=== PATIENT | female | born 1960 | race Caucasian/White ===

== ENCOUNTER → 2017-10-11 | Emergency (ER) | payer OTHER ==
[~2017-10-11] VITALS: Ht 165.1 cm; Wt 63.5 kg
[~2017-10-11] MED LIST: ACIDOPHILUS1 EAC1 PO
== END | disposition home or self-care (01) ==
LOC: ER 02:54
DX: K52.9 Noninfective gastroenteritis and colitis, unspecified (principal)

== ENCOUNTER 2018-03-18 08:19 | Emergency (ER) | payer OTHER ==
[~2018-03-18] VITALS: Ht 165.1 cm; Wt 65.8 kg
[2018-03-18] MEDS ORDERED: IRBESARTAN75 MG PO (08:26)
== END 2018-03-18 14:39 | disposition home or self-care (01) ==
LOC: ER 08:19
DX: K29.70 Gastritis, unspecified, without bleeding (principal)